=== PATIENT | male | born 1955 | race Caucasian/White ===

== ENCOUNTER 2019-03-17 08:17 | Outpatient (CLI) | payer MEDICARE | END 2019-03-17 08:18 | disposition short-term general hospital (02) | LOC: EMS 08:17 | PROVIDERS: ATTEND Surgery | DX: R00.0 Tachycardia, unspecified (principal); R07.9 Chest pain, unspecified; R61 Generalized hyperhidrosis | CPT/HCPCS: A0425; A0427 ==

== ENCOUNTER 2019-05-16 07:34 | Outpatient (CLI) | payer MEDICARE | END 2019-05-16 07:35 | disposition short-term general hospital (02) | LOC: EMS 07:34 | PROVIDERS: ATTEND Surgery | DX: R10.819 Abdominal tenderness, unspecified site (principal); R11.2 Nausea with vomiting, unspecified | CPT/HCPCS: A0425; A0429 ==

== ENCOUNTER 2019-08-07 10:42 | Outpatient (CLI) | payer MEDICARE | END 2019-08-07 10:43 | disposition short-term general hospital (02) | LOC: EMS 10:42 | PROVIDERS: ATTEND Surgery | DX: R10.32 Left lower quadrant pain (principal); R11.2 Nausea with vomiting, unspecified; R53.1 Weakness | CPT/HCPCS: A0425; A0427 ==

== ENCOUNTER 2019-08-08 08:47 | Outpatient (CLI) | payer MEDICARE | END 2019-08-08 08:48 | disposition short-term general hospital (02) | LOC: EMS 08:47 | PROVIDERS: ATTEND Surgery | DX: R07.9 Chest pain, unspecified (principal); R00.0 Tachycardia, unspecified; R11.0 Nausea | CPT/HCPCS: A0425; A0427 ==

== ENCOUNTER 2020-04-08 12:57 | Outpatient (CLI) | payer MEDICARE | END 2020-04-08 12:58 | disposition short-term general hospital (02) | LOC: EMS 12:57 | PROVIDERS: ATTEND Surgery | DX: R10.9 Unspecified abdominal pain (principal); R11.2 Nausea with vomiting, unspecified; R19.7 Diarrhea, unspecified | CPT/HCPCS: A0425; A0427 ==

== ENCOUNTER 2020-08-05 09:14 | Outpatient (CLI) | payer MEDICARE | END 2020-08-05 09:15 | disposition home or self-care (01) | LOC: EMS 09:14 | DX: Z53.9 Procedure and treatment not carried out, unspecified reason (principal) ==

== ENCOUNTER 2020-08-11 09:08 | Outpatient (CLI) | payer MEDICARE | END 2020-08-11 09:09 | disposition short-term general hospital (02) | LOC: EMS 09:08 | DX: R11.2 Nausea with vomiting, unspecified (principal); R10.9 Unspecified abdominal pain; R19.7 Diarrhea, unspecified | CPT/HCPCS: A0425; A0427 ==

== ENCOUNTER 2020-08-13 07:32 | Outpatient (CLI) | payer MEDICARE | END 2020-08-13 07:33 | disposition short-term general hospital (02) | LOC: EMS 07:32 | DX: R00.0 Tachycardia, unspecified (principal); R10.9 Unspecified abdominal pain | CPT/HCPCS: A0425; A0427 ==

== ENCOUNTER 2020-08-19 15:20 | Outpatient (CLI) | payer MEDICARE | END 2020-08-19 15:21 | disposition short-term general hospital (02) | LOC: EMS 15:20 | DX: R07.9 Chest pain, unspecified (principal); R51.9 Headache, unspecified; R10.9 Unspecified abdominal pain; R11.2 Nausea with vomiting, unspecified | CPT/HCPCS: A0425; A0427 ==

== ENCOUNTER 2020-09-18 12:45 | Outpatient (CLI) | payer MEDICARE | END 2020-09-18 12:46 | disposition short-term general hospital (02) | LOC: EMS 12:45 | DX: R11.2 Nausea with vomiting, unspecified (principal) | CPT/HCPCS: A0425; A0427 ==

== ENCOUNTER 2020-09-20 18:32 | Outpatient (CLI) | payer MEDICARE | END 2020-09-20 18:33 | disposition short-term general hospital (02) | LOC: EMS 18:32 | DX: R55 Syncope and collapse (principal); R53.1 Weakness; R07.89 Other chest pain | CPT/HCPCS: A0425; A0427 ==

== ENCOUNTER 2020-10-11 13:03 | Outpatient (CLI) | payer MEDICARE | END 2020-10-11 23:59 | disposition short-term general hospital (02) | LOC: EMS 13:03 | DX: R10.10 Upper abdominal pain, unspecified (principal); R11.2 Nausea with vomiting, unspecified; R19.7 Diarrhea, unspecified | CPT/HCPCS: A0425; A0429 ==

== ENCOUNTER 2020-10-13 06:28 | Outpatient (CLI) | payer MEDICARE | END 2020-10-13 06:29 | disposition short-term general hospital (02) | LOC: EMS 06:28 | DX: R10.10 Upper abdominal pain, unspecified (principal); R11.2 Nausea with vomiting, unspecified; R19.7 Diarrhea, unspecified | CPT/HCPCS: A0425; A0427 ==

== ENCOUNTER 2020-11-29 15:38 | Outpatient (CLI) | payer MEDICARE | END 2020-11-29 15:39 | disposition short-term general hospital (02) | LOC: EMS 15:38 | DX: R30.0 Dysuria (principal); R11.10 Vomiting, unspecified; R63.8 Other symptoms and signs concerning food and fluid intake | CPT/HCPCS: A0425; A0427 ==

== ENCOUNTER 2021-02-16 09:45 | Outpatient (CLI) | payer MEDICARE | END 2021-02-16 09:46 | disposition short-term general hospital (02) | LOC: EMS 09:45 | DX: R11.2 Nausea with vomiting, unspecified (principal); R61 Generalized hyperhidrosis; R68.83 Chills (without fever) | CPT/HCPCS: A0425; A0427 ==

== ENCOUNTER 2021-03-30 08:30 | Outpatient (CLI) | payer MEDICARE | END 2021-03-30 08:31 | disposition short-term general hospital (02) | LOC: EMS 08:30 | DX: R53.1 Weakness (principal); R61 Generalized hyperhidrosis | CPT/HCPCS: A0425; A0427 ==

== ENCOUNTER 2021-05-02 16:41 | Outpatient (CLI) | payer MEDICARE | END 2021-05-02 16:42 | disposition short-term general hospital (02) | LOC: EMS 16:41 | DX: R07.2 Precordial pain (principal); R19.7 Diarrhea, unspecified | CPT/HCPCS: A0425; A0427 ==

== ENCOUNTER 2021-06-01 10:43 | Outpatient (CLI) | payer MEDICARE | END 2021-06-01 10:44 | disposition short-term general hospital (02) | LOC: EMS 10:43 | DX: R10.11 Right upper quadrant pain (principal) | CPT/HCPCS: A0425; A0429 ==

== ENCOUNTER 2021-06-02 07:22 | Outpatient (CLI) | payer MEDICARE | END 2021-06-02 07:23 | disposition short-term general hospital (02) | LOC: EMS 07:22 | DX: I10 Essential (primary) hypertension (principal); R07.9 Chest pain, unspecified; R11.0 Nausea | CPT/HCPCS: A0425; A0427 ==

== ENCOUNTER 2021-06-22 09:55 | Outpatient (CLI) | payer MEDICARE | END 2021-06-22 09:56 | disposition short-term general hospital (02) | LOC: EMS 09:55 | DX: R11.2 Nausea with vomiting, unspecified (principal) | CPT/HCPCS: A0425; A0427 ==

== ENCOUNTER 2022-04-12 02:48 | Outpatient (CLI) | payer MEDICARE | END 2022-04-12 23:59 | disposition short-term general hospital (02) | LOC: EMS 02:48 | DX: R10.31 Right lower quadrant pain (principal); R11.2 Nausea with vomiting, unspecified; I10 Essential (primary) hypertension; R00.0 Tachycardia, unspecified | CPT/HCPCS: A0425; A0429 ==

== ENCOUNTER 2022-05-07 07:34 | Outpatient (CLI) | payer MEDICARE | END 2022-05-07 23:59 | disposition short-term general hospital (02) | LOC: EMS 07:34 | DX: R07.89 Other chest pain (principal); R10.816 Epigastric abdominal tenderness; R11.0 Nausea; I10 Essential (primary) hypertension | CPT/HCPCS: A0425; A0427; A0888 ==

== ENCOUNTER 2022-06-14 12:36 | Outpatient (CLI) | payer MEDICARE | END 2022-06-14 12:37 | disposition short-term general hospital (02) | LOC: EMS 12:36 | DX: I10 Essential (primary) hypertension (principal); R11.2 Nausea with vomiting, unspecified; M54.50 Low back pain, unspecified; G89.29 Other chronic pain | CPT/HCPCS: A0425; A0427 ==

== ENCOUNTER 2023-12-18 21:52 | Outpatient (CLI) | payer MEDICARE | END 2023-12-18 23:59 | disposition short-term general hospital (02) | LOC: EMS 21:52 | DX: R11.2 Nausea with vomiting, unspecified (principal); R63.0 Anorexia; R63.8 Other symptoms and signs concerning food and fluid intake; R53.1 Weakness | CPT/HCPCS: A0425; A0429 ==

== ENCOUNTER 2023-12-20 08:27 | Outpatient (CLI) | payer MEDICARE | END 2023-12-20 08:28 | disposition short-term general hospital (02) | LOC: EMS 08:27 | DX: R07.89 Other chest pain (principal) | CPT/HCPCS: A0425; A0427 ==